=== PATIENT | male | born 2000 | race African-American/Black ===

== ENCOUNTER 2021-08-17 13:50 | Emergency (ER) | payer MEDICAID ==
[~2021-08-17] VITALS: Ht 177 cm; Wt 113.0 kg
--- NOTE | 2021-08-17 14:38 | ED Abdominal Pain ---
General Chief Complaint: Abdominal/GI Problems Stated Complaint: ABD PAIN Nursing Triage Note: PT CO OF ABD PAIN UPPER ABD SINCE THIS AM, PT WAS SEEN AT [facility] TODAY AND GIVEN IM OF SOMETHING Source of Information: Patient Exam Limitations: No Limitations History of Present Illness Date Seen by Provider: Aug 17, 2021 Time Seen by Provider: 14:38 Initial Comments ER with severe midline upper abdominal pain that radiates from the umbilicus up to the epigastric region. This began this morning he was seen at [facility] given a shot of Toradol with minimal improvement. He came here. No nausea no vomiting. No history of this. Timing/Duration: 4-6 Hours Severity/Quality: Severe Location: Epigastric Radiation: No Radiation Activities at Onset: None Associated Symptoms: No Nausea/Vomiting Allergies and Home Medications Allergies Coded Allergies: No Known Drug Allergies (Unverified , 08/17/21) Patient Home Medication List Home Medication List Reviewed: Yes Review of Systems Review of Systems Constitutional: see HPI EENTM: No Symptoms Reported Respiratory: No Symptoms Reported Cardiovascular: No Symptoms Reported Gastrointestinal: See HPI, Abdominal Pain Genitourinary: No Symptoms Reported Musculoskeletal: no symptoms reported Skin: no symptoms reported Psychiatric/Neurological: No Symptoms Reported Endocrine: No Symptoms Reported Hematologic/Lymphatic: No Symptoms Reported Past Momouoq-Cvoedn-Shhvhm Hx Patient Social History Tobacco Use?: No Substance use?: No Pt feels they are or have been: No Immunizations Up To Date First/Initial COVID19 Vaccinat: 2020 Second COVID19 Vaccination Ovidio: 2020 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 oz. kg; 36.00 BMI Method: General Appearance: WD/WN, no apparent distress HEENT: PERRL/EOMI, normal ENT inspection, TMs normal Neck: non-tender, full range of motion Respiratory: no respiratory distress, no accessory muscle use Cardiovascular: regular rate, rhythm, no murmur Gastrointestinal: normal bowel sounds, soft, tenderness Extremities: normal range of motion, non-tender, normal inspection Neurologic/Psychiatric: alert, normal mood/affect, oriented x 3 Skin: normal color, warm/dry Progress/Results/Core Measures Results/Orders My Orders Orders - SANYA WYATT APRN Cbc With Automated Diff (08/17/21 14:34) Comprehensive Metabolic Panel (08/17/21 14:34) Lipase (08/17/21 14:34) Antacid Suspension (Mylanta Suspension (08/17/21 14:45) Lidocaine 2% Viscous 15 Ml (Xylocaine Vi (08/17/21 14:45) Medications Given in ED Current Medications Medications Dose Ordered Sig/Agnieszka Route Start Time Stop Time Status Last Admin Dose Admin Al Hydrox/Mg Hydrox/Simethicone 30 ml ONCE ONCE PO 08/17/21 14:45 08/17/21 14:46 DC 08/17/21 15:16 30 ML Lidocaine HCl 15 ml ONCE ONCE PO 08/17/21 14:45 08/17/21 14:46 DC 08/17/21 15:16 15 ML Vital Signs/I&O 08/17/21 14:08 Temp 36.2 Pulse 95 Resp 18 B/P (MAP) 129/89 (102) Pulse Ox 98 Blood Pressure Mean: 102 Departure Communication (Admissions) 1550-GI cocktail completely resolved his pain. Impression Primary Impression: Gastritis Disposition: 01 HOME, SELF-CARE Condition: Stable Departure-Patient Inst. Decision time for Depature: 15:50 Referrals: [facility] (PCP/Family) Primary Care Physician Patient Instructions: Gastritis ED Add. Discharge Instructions: 1. You can use xinu-xbj-[id number] Mylanta as well to help if you have any recurrent pain. Take the acid instructional design specialist as directed. Follow-up with your doctor next week. Return to ER if any worsening. All discharge instructions reviewed with patient and/or family. Voiced understanding. Scripts Pantoprazole Sodium (Protonix) 40 Mg Tablet. 40 MG PO DAILY, #30 TAB Prov: SANYA WYATT APRN 08/17/21 SANYA WYATT APRN Aug 17, 2021 14:38
[2021-08-17] MEDS ORDERED: ANTACID SUSP 30 ML UDC (MYLANTA) PO ONE (14:45)
[2021-08-17] MEDS ORDERED: LIDOCAINE 2% VISCOUS 15 ML UDC PO ONE (14:45)
[2021-08-17] MEDS ORDERED: PANT40TA2 PO (15:51)
[2021-08-17 15:58] VITALS: BP 129/89
[2021-08-17 16:01] LABS: BASOPHILS % (AUTO) 0 % (0-10); EOSINOPHILS # (AUTO) 0.1 10^3/uL (0.0-0.3); EOSINOPHILS % (AUTO) 1 % (0-10); HEMATOCRIT 43 % (40-54); LYMPHOCYTES % (AUTO) 19 % (12-44); MEAN CORPUSCULAR HEMOGLOBIN 27 pg (25-34); MEAN CORPUSCULAR HGB CONC 32 g/dL (32-36); MEAN CORPUSCULAR VOLUME 84 fL (80-99); MEAN PLATELET VOLUME 8.2 fL (9.0-12.2); MONOCYTES # (AUTO) 0.4 10^3/uL (0.0-1.0); MONOCYTES % (AUTO) 8 % (0-12); NEUTROPHILS # (AUTO) 3.8 10^3/uL (1.8-7.8); NEUTROPHILS % (AUTO) 72 % (42-75); PLATELET COUNT 383 10^3/uL (130-400); WHITE BLOOD COUNT 5.3 10^3/uL (4.3-11.0)
[2021-08-17 16:05] LABS: ALBUMIN 4.3 GM/DL (3.2-4.5)
[2021-08-17 16:06] LABS: POTASSIUM 3.9 MMOL/L (3.6-5.0)
[2021-08-17 16:10] LABS: BILIRUBIN,TOTAL 0.7 MG/DL (0.1-1.0)
[2021-08-17 16:12] LABS: CREATININE SERUM 0.88 MG/DL (0.60-1.30)
== END 2021-08-17 15:58 | disposition home or self-care (01) ==
LOC: ER 13:53
DX: K29.70 Gastritis, unspecified, without bleeding (principal)
CPT/HCPCS: 36415; 80053; 83690; 85025; 99283

== ENCOUNTER 2022-05-08 00:15 | Emergency (ER) | payer MEDICAID ==
[~2022-05-08] VITALS: Ht 177 cm; Wt 115.0 kg
[~2022-05-08 00:15] MED LIST: PANT40TA2 PO
[2022-05-08] MEDS ORDERED: OMEP40CA6 (00:32)
[2022-05-08] MEDS ORDERED: LORA10TA7 (00:32)
[2022-05-08] MEDS ORDERED: QUET100T33 (00:32)
[2022-05-08] MEDS ORDERED: CLN.1T (00:32)
[2022-05-08] MEDS ORDERED: MONT-40 (00:32)
[2022-05-08] MEDS ORDERED: QUET300T19 (00:32)
[2022-05-08 00:41] LABS: BASOPHILS % (AUTO) 0 % (0-10); EOSINOPHILS # (AUTO) 0.1 10^3/uL (0.0-0.3); EOSINOPHILS % (AUTO) 1 % (0-10); HEMATOCRIT 41 % (40-54); HEMOGLOBIN 13.3 g/dL (13.3-17.7); LYMPHOCYTES % (AUTO) 17 % (12-44); MEAN CORPUSCULAR HEMOGLOBIN 26 pg (25-34); MEAN CORPUSCULAR HGB CONC 32 g/dL (32-36); MEAN CORPUSCULAR VOLUME 81 fL (80-99); MEAN PLATELET VOLUME 8.4 fL (9.0-12.2); MONOCYTES # (AUTO) 0.4 10^3/uL (0.0-1.0); MONOCYTES % (AUTO) 6 % (0-12); NEUTROPHILS # (AUTO) 4.2 10^3/uL (1.8-7.8); NEUTROPHILS % (AUTO) 75 % (42-75); PLATELET COUNT 407 10^3/uL (130-400); WHITE BLOOD COUNT 5.6 10^3/uL (4.3-11.0)
--- NOTE | 2022-05-08 00:43 | ED Abdominal Pain ---
General Chief Complaint: Abdominal/GI Problems Stated Complaint: ABD PAIN Nursing Triage Note: C/O GENERALIZED ABDOMINAL PAIN SINCE AFTER DINNER. PT REPORTS EATING SHAYLA SLAW FROM [facility] PRIOR TO SX ONSET. 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 PAIN IS WORSE WITH ANY MOVEMENTS OF HIS ABDOMEN NO RADIATION OF PAIN NO NAUSEA/VOMITING HAD A NORMAL BM TODAY NO URINARY SYMPTOMS NO FEVER BURGOS SNOT TAKEN ANYTHING FOR PAIN NO HISTORY OF SIMILAR HAS BEEN DX WITH "INFLAMMATION IN HIS STOMACH" AND TAKES OMEPRAZOLE. NO MISSED DOSES OF MEDICATION PCP: [facility] [place] Allergies and Home Medications Allergies Coded Allergies: No Known Drug Allergies (Unverified , 08/17/21) Patient Home Medication List Home Medication List Reviewed: Yes Clonidine HCl (Clonidine HCl) 0.1 Mg Tablet, (Reported) Entered as Reported by: SOL ADAN on 05/08/2231 Last Action: New Order Dicyclomine HCl (Dicyclomine HCl) 20 Mg Tablet, 20 MG PO Q6H Prescribed by: ZEUS MAGAÑA on 05/08/22 025 Loratadine (Loratadine) 10 Mg Tablet, (Reported) Entered as Reported by: SOL ADAN on 05/08/2231 Last Action: New Order Montelukast Sodium (Montelukast Sodium) 10 Mg Tablet, (Reported) Entered as Reported by: SOL ADAN on 05/08/2231 Last Action: New Order Omeprazole (Omeprazole) 40 Mg Capsule., (Reported) Entered as Reported by: SOL ADAN on 05/08/2231 Last Action: New Order Pantoprazole Sodium (Protonix) 40 Mg Tablet.dr, 40 MG PO DAILY Prescribed by: SANYA WYATT on 08/17/21 1556 Quetiapine Fumarate (Quetiapine Fumarate) 100 Mg Tablet, (Reported) Entered as Reported by: SOL ADAN on 05/08/2231 Last Action: New Order Quetiapine Fumarate (Quetiapine Fumarate) 300 Mg Tablet, (Reported) Entered as Reported by: SOL ADAN on 05/08/22 0032 Last Action: New Order Tramadol HCl (Tramadol HCl) 50 Mg Tablet, 50 MG PO Q6H PRN for PAIN Prescribed by: ZEUS MAGAÑA on 05/08/22 0300 Review of Systems Review of Systems Constitutional: no symptoms reported EENTM: No Symptoms Reported Respiratory: No Symptoms Reported Cardiovascular: No Symptoms Reported Gastrointestinal: See HPI, Abdominal Pain; Denies Constipated, Denies Diarrhea, Denies Nausea, Denies Vomiting Genitourinary: No Symptoms Reported Musculoskeletal: no symptoms reported Skin: no symptoms reported Psychiatric/Neurological: No Symptoms Reported Endocrine: No Symptoms Reported Hematologic/Lymphatic: No Symptoms Reported Past Ygymhbg-Fatmgu-Ujxzxy Hx Patient Social History Tobacco Use?: No Substance use?: No Alcohol Use?: No Pt feels they are or have been: No Immunizations Up To Date First/Initial COVID19 Vaccinat: x2 Second COVID19 Vaccination Ovidio: 2020 Past Medical History Surgery/Hospitalization HX: PSYCH, GERD Surgeries: No Respiratory: No Cardiac: No Neurological: No Genitourinary: No Gastrointestinal: Yes Gastroesophageal Reflux Musculoskeletal: No Endocrine: No HEENT: No Cancer: No Psychosocial: Yes Personality Disorder Integumentary: No Blood Disorders: No Physical Exam Vital Signs Vital Signs - First Documented 05/08/22 00:22 Temp 36.5 Pulse 101 Resp 18 B/P (MAP) 149/98 (115) Pulse Ox 97 O2 Delivery Room Air Capillary Refill : Less Than 3 Seconds Height/Weight/BMI Height: '" Weight: lbs. oz. kg; 36.00 BMI Method: General Appearance: WD/WN, no apparent distress, other (WALKS UPRIGHT AND MOVES QUICKLY WITHOUT DIFFICULTY) HEENT: No scleral icterus (R), No scleral icterus (L) Neck: normal inspection Respiratory: chest non-tender, normal breath sounds, no respiratory distress, no accessory muscle use Cardiovascular: regular rate, rhythm, no murmur Gastrointestinal: normal bowel sounds, soft, no organomegaly, no pulsatile mass; No distended, No guarding, No rebound; tenderness (DIFFUSE UPPER ABDOMINAL TENDERNESS. 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 nml as tested, no motor/sensory deficits, alert, normal mood/affect, oriented x 3 Skin: normal color (PT IS BLACK), warm/dry; No rash Progress/Results/Core Measures Results/Orders Lab Results Laboratory Tests Test 05/08/22 00:27 05/08/22 00:40 Range/Units White Blood Count 5.6 4.3-11.0 10^3/uL Red Blood Count 5.09 4.30-5.52 10^6/uL Hemoglobin 13.3 13.3-17.7 g/dL Hematocrit 41 40-54 % Mean Corpuscular Volume 81 80-99 fL Mean Corpuscular Hemoglobin 26 25-34 pg Mean Corpuscular Hemoglobin Concent 32 32-36 g/dL Red Cell Distribution Width 12.5 10.0-14.5 % Platelet Count 407 H 130-400 10^3/uL Mean Platelet Volume 8.4 L 9.0-12.2 fL Immature Granulocyte % (Auto) 1 % Neutrophils (%) (Auto) 75 42-75 % Lymphocytes (%) (Auto) 17 12-44 % Monocytes (%) (Auto) 6 0-12 % Eosinophils (%) (Auto) 1 0-10 % Basophils (%) (Auto) 0 0-10 % Neutrophils # (Auto) 4.2 1.8-7.8 10^3/uL Lymphocytes # (Auto) 1.0 1.0-4.0 10^3/uL Monocytes # (Auto) 0.4 0.0-1.0 10^3/uL Eosinophils # (Auto) 0.1 0.0-0.3 10^3/uL Basophils # (Auto) 0.0 0.0-0.1 10^3/uL Immature Granulocyte # (Auto) 0.0 0.0-0.1 10^3/uL Sodium Level 139 135-145 MMOL/L Potassium Level 3.6 3.6-5.0 MMOL/L Chloride Level 104 98-107 MMOL/L Carbon Dioxide Level 22 21-32 MMOL/L Anion Gap 13 5-14 MMOL/L Blood Urea Nitrogen 7 7-18 MG/DL Creatinine 0.96 0.60-1.30 MG/DL Estimat Glomerular Filtration Rate 114 BUN/Creatinine Ratio 7 Glucose Level 127 H 70-105 MG/DL Calcium Level 9.6 8.5-10.1 MG/DL Corrected Calcium 9.4 8.5-10.1 MG/DL Total Bilirubin 0.5 0.1-1.0 MG/DL Aspartate Amino Transf (AST/SGOT) 23 5-34 U/L Alanine Aminotransferase (ALT/SGPT) 40 0-55 U/L Alkaline Phosphatase 78 40-136 U/L C-Reactive Protein High Sensitivity 1.14 H 0.00-0.50 MG/DL Total Protein 8.2 6.4-8.2 GM/DL Albumin 4.3 3.2-4.5 GM/DL Amylase Level 43 25-125 U/L Lipase 19 8-78 U/L Serum Alcohol < 10 <10 MG/DL Urine Color DARK YELLOW Urine Clarity CLEAR Urine pH 6.0 5-9 Urine Specific Earling >=1.030 1.016-1.022 Urine Protein NEGATIVE NEGATIVE Urine Glucose (UA) NEGATIVE NEGATIVE Urine Ketones NEGATIVE NEGATIVE Urine Nitrite NEGATIVE NEGATIVE Urine Bilirubin NEGATIVE NEGATIVE Urine Urobilinogen 1.0 < = 1.0 MG/DL Urine Leukocyte Esterase NEGATIVE NEGATIVE Urine RBC (Auto) NEGATIVE NEGATIVE Urine RBC NONE /HPF Urine WBC NONE /HPF Urine Crystals NONE /LPF Urine Bacteria NEGATIVE /HPF Urine Casts NONE /LPF Urine Mucus SMALL H /LPF Urine Culture Indicated NO Urine Opiates Screen NEGATIVE NEGATIVE Urine Oxycodone Screen NEGATIVE NEGATIVE Urine Methadone Screen NEGATIVE NEGATIVE Urine Propoxyphene Screen NEGATIVE NEGATIVE Urine Barbiturates Screen NEGATIVE NEGATIVE Ur Tricyclic Antidepressants Screen POSITIVE H NEGATIVE Urine Phencyclidine Screen NEGATIVE NEGATIVE Urine Amphetamines Screen NEGATIVE NEGATIVE Urine Methamphetamines Screen NEGATIVE NEGATIVE Urine Benzodiazepines Screen NEGATIVE NEGATIVE Urine Cocaine Screen NEGATIVE NEGATIVE Urine Cannabinoids Screen NEGATIVE NEGATIVE My Orders Orders - ZEUS MAGAÑA DO Ed Iv/Invasive Line Start (05/08/22 00:31) Alcohol (05/08/22 00:31) Amylase (05/08/22:31) Cbc With Automated Diff (05/08/22:) Comprehensive Metabolic Panel (05/08/22:) Hs C Reactive Protein (05/08/22:31) Drug Screen Stat (Urine) (05/08/22:31) Lipase (05/08/22 00:31) Ua Culture If Indicated (05/08/22:31) Ct Abd/Pelv W (Appendicitis) (12/9/22 00:31) Iohexol Injection (Omnipaque 350 Mg/Ml 1 (05/08/22 01:30) Received Contrast (Hold Metformin- Contr (05/08/22 01:30) Ns (Ivpb) (Sodium Chloride 0.9% Ivpb Bag (05/08/22 01:30) Medications Given in ED Current Medications Medications Dose Ordered Sig/Agnieszka Route Start Time Stop Time Status Last Admin Dose Admin Iohexol 100 ml ONCE ONCE IV 05/08/22 01:30 05/08/22 01:31 DC 05/08/22 01:28 100 ML Sodium Chloride 100 ml ONCE ONCE IV 05/08/22 01:30 05/08/22 01:31 DC 05/08/22 01:28 80 ML Vital Signs/I&O 05/08/22 00:22 Temp 36.5 Pulse 101 Resp 18 B/P (MAP) 149/98 (115) Pulse Ox 97 O2 Delivery Room Air Blood Pressure Mean: 115 Progress Progress Note : Progress Note SYMPTOMS RESOLVED WITHOUT TREATMENT PT SLEPT FOR MOST OF ER STAY REVIEWED TEST RESULTS, DIET MODIFICATIONS, NEED FOR FOLLOW UP WITH SURGEON FOR FURTHER EVAULATION AND RETURN PRECAUTIONS DISCUSSED WITH BOTH PT AND 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 Reviewed: Reviewed by Me Departure Impression Primary Impression: Abdominal pain Additional Impression: Cholelithiases Disposition: HOME, SELF-CARE Condition: Improved Departure-Patient Inst. Decision time for Depature: 02:50 Referrals: [facility] (PCP/Family) Primary Care Physician RADHA WATSON MD Patient Instructions: Gallstones ED, Gallbladder Diet Add. Discharge Instructions: CLEAR LIQUIDS--WATER, BROTH, JELLO, GATORADE BRATS DIET--BANANAS, RICE, APPLESAUCE, TOAST, SALTINES FOLLOW UP WITH DR. WATSON, SURGEON, FOR FURTHER CARE--CALL THIS MORNING TO SCHEDULE A FOLLOW UP APPOINTMENT RETURN TO ER IF SYMPTOMS WORSEN All discharge instructions reviewed with patient and/or family. Voiced understanding. Scripts Tramadol HCl (Tramadol HCl) 50 Mg Tablet 50 MG PO Q6H PRN for PAIN for 3 Days, #15 TAB 0 Refills Prov: ZEUS MAGAÑA DO 05/08/22 Dicyclomine HCl (Dicyclomine HCl) 20 Mg Tablet 20 MG PO Q6H for Abdominal Pain, #20 TAB Prov: ZEUS MAGAÑA DO 05/08/22 ZEUS MAGAÑA DO May 08, 2022 00:43
[2022-05-08 00:44] LABS: BILIRUBIN,URINE NEGATIVE (NEGATIVE); CLARITY,URINE CLEAR; COLOR,URINE DARK YELLOW; GLUCOSE, URINE (UA) NEGATIVE (NEGATIVE); KETONES,URINE NEGATIVE (NEGATIVE); LEUKOCYTE ESTERASE ,URINE NEGATIVE (NEGATIVE); NITRITE,URINE NEGATIVE (NEGATIVE); PROTEIN,URINE NEGATIVE (NEGATIVE)
[2022-05-08 00:55] LABS: ALANINE AMINOTRANSFERASE 40 U/L (0-55); ALBUMIN 4.3 GM/DL (3.2-4.5); ALKALINE PHOSPHATASE 78 U/L (40-136); AMYLASE 43 U/L (25-125); BILIRUBIN,TOTAL 0.5 MG/DL (0.1-1.0); BUN/CREATININE RATIO 7; CALCIUM 9.6 MG/DL (8.5-10.1); CARBON DIOXIDE 22 MMOL/L (21-32); CHLORIDE 104 MMOL/L (98-107); CREATININE SERUM 0.96 MG/DL (0.60-1.30); GFR ESTIMATED 114; GLUCOSE 127 MG/DL (70-105); LIPASE 19 U/L (8-78); POTASSIUM 3.6 MMOL/L (3.6-5.0); SODIUM 139 MMOL/L (135-145); TOTAL PROTEIN 8.2 GM/DL (6.4-8.2)
[2022-05-08 01:06] LABS: BACTERIA,URINE NEGATIVE /HPF
[2022-05-08 01:20] LABS: AMPHETAMINE SCREEN, URINE NEGATIVE (NEGATIVE); BARBITURATE SCREEN URINE NEGATIVE (NEGATIVE); BENZODIAZEPINES SCREEN URINE NEGATIVE (NEGATIVE); CANNABINOID SCREEN, URINE NEGATIVE (NEGATIVE); COCAINE SCREEN URINE NEGATIVE (NEGATIVE); METHADONE STAT NEGATIVE (NEGATIVE); OPIATE SCREEN URINE NEGATIVE (NEGATIVE); OXYCODONE STAT NEGATIVE (NEGATIVE); PROPOXYPHENE STAT NEGATIVE (NEGATIVE); TRICYCLIC ANTIDEPRESSANTS SCRE POSITIVE (NEGATIVE)
[2022-05-08] MEDS ORDERED: NS 100 ML (IVPB) BAG IV ONE (01:30)
[2022-05-08] MEDS ORDERED: HOLD METFORMIN - RECEIVED CONTRAST 20 ML VIAL IV SCH (01:30)
[2022-05-08] MEDS ORDERED: IOHEXOL 350 MG/ML 100 ML (OMNIPAQUE 350) VIAL IV ONE (01:30)
[2022-05-08] MEDS ORDERED: TRM50T PO (02:59)
[2022-05-08] MEDS ORDERED: DICY20TA PO (02:59)
[2022-05-08 03:03] VITALS: BP 146/95
--- NOTE | 2022-05-08 06:53 | Diagnostic Imaging Report ---
INDICATION: Right lower quadrant abdominal pain TECHNIQUE: Multiple contiguous axial images were obtained through the abdomen and pelvis after the administration of intravenous contrast. All CT scans use one or more of the following dose optimizing techniques: automated exposure control, MA and/or KvP adjustment based on patient size and exam type or iterative reconstruction. There is no prior CT for comparison The visualized portions of the lung bases are clear. There were no pleural fluid collections. There is no free intraperitoneal air. Small hiatal hernia is noted. The liver and gallbladder appear normal. Spleen, adrenals, and pancreas are normal. The kidneys bilaterally appear normal. There is no retroperitoneal mass or adenopathy. There is no ascites or abnormal fluid collection. The appendix appears normal. Visualized bowel loops show no obstruction or bowel wall thickening. There is no pelvic mass or free fluid. IMPRESSION: No acute process in the abdomen or pelvis. Small hiatal hernia incidentally noted. No CT evidence of appendicitis. Dictated by: Dictated on workstation # [id number]
== END 2022-05-08 03:07 | disposition home or self-care (01) ==
LOC: EDUNIT# 00:15 → ER 00:19
DX: K80.20 Calculus of gallbladder without cholecystitis without obstruction (principal)
CPT/HCPCS: 74177; 80053; 80306; 81000; 82150; 83690; 85025; 86141; 99283; G0480; 36415; 80320

== ENCOUNTER 2022-08-05 05:28 | Outpatient (CLI) | payer MEDICAID ==
[~2022-08-05] VITALS: Ht 180.3 cm; Wt 120.2 kg
[~2022-08-05 05:28] MED LIST changes: +CLN.1T; +DICY20TA PO; +LORA10TA7; +MONT-40; +OMEP40CA6; +QUET100T33; +QUET300T19; +TRM50T PO
[2022-08-05] MEDS ORDERED: RT-ALBUINH INH (14:44)
[2022-08-05] MEDS ORDERED: FLUT9.9S NS (14:44)
[2022-08-05] MEDS ORDERED: FAMO20TA3 PO (14:44)
== END 2022-08-05 15:00 | disposition home or self-care (01) ==
LOC: PREOP 05:28
PROVIDERS: ATTEND Surgery
DX: Z01.818 Encounter for other preprocedural examination (principal)

== ENCOUNTER 2022-08-12 07:34 | Day surgery (SDC) | payer MEDICAID ==
[~2022-08-12] VITALS: Ht 180.3 cm; Wt 120.2 kg
[2022-08-12] VITALS (12 sets, daily range): BP systolic 98–156; BP diastolic 47–105
[~2022-08-12 07:34] MED LIST changes: +FAMO20TA3 PO; +FLUT9.9S NS; +HYDROmorphone 2 MG/ML VIAL (DILAUDID) IV ONE; +ONDANSETRON 4 MG/2 ML (SDV) Z0FRAN IVP PRN; +RT-ALBUINH INH; +morphine INJ 10 MG/ML 1ML (SYR OR VIAL) IVP ONE
[2022-08-12] MEDS ORDERED: ceFAZolin INJECTION 2,000 MG in NS (IVPB) 50 ML IV ONE (08:00)
[2022-08-12] MEDS ORDERED: proPOfol 200 MG/20 ML (DIPRIVAN) VIAL IV ONE (08:03)
[2022-08-12] MEDS ORDERED: MIDAZOLAM 2 MG/2 ML (VERSED) VIAL ONE (08:03)
[2022-08-12] MEDS ORDERED: LIDOCAINE PF 2% 5 ML (XYLOCAINE) VIAL ONE (08:03)
[2022-08-12] MEDS ORDERED: fentaNYL INJ 100 MCG/2 ML AMP ONE (08:03)
[2022-08-12] MEDS ORDERED: GLYCOPYRROLATE 0.2 MG/ML (ROBINUL) 2 ML VIAL ONE (08:03)
[2022-08-12] MEDS ORDERED: ONDANSETRON 4 MG/2 ML (SDV) Z0FRAN ONE ×2 (08:03→12:59)
[2022-08-12] MEDS ORDERED: NEOSTIGMINE (BLOXIVERZ ) 1 MG/1ML 10 ML VIAL ONE (08:04)
[2022-08-12] MEDS ORDERED: ROCURONIUM 50 MG/5 ML (ZEMURON) VIAL IV ONE ×2 (08:04→10:28)
[2022-08-12] MEDS ORDERED: BUP/EPI 0.5% 1:200,000 (SENSORCAINE) 30 ML VIAL ONE (08:37)
[2022-08-12] MEDS: LACTATED RINGERS 1,000 ML IV PRN ×3 (08:48→13:27)
[2022-08-12] MEDS ORDERED: IOHEXOL 300 MG/ML 100 ML (OMNIPAQUE 300) VIAL INJ ONE (08:56)
[2022-08-12] MEDS ORDERED: BUP/EPI 0.5% 1:200,000 (SENSORCAINE) 30 ML VIAL INJ ONE (08:56)
--- NOTE | 2022-08-12 09:03 | Progress Note-Pre Operative ---
Pre-Operative Progress Note Date of Available H&P: Jul 21, 2022 Date H&P Reviewed: Aug 12, 2022 Time H&P Reviewed: 09:01 History & Physical: H&P Reviewed, Patient Examed, No changes noted Pre-Operative Diagnosis: Cholelithiasis/Cholecystitis WASHINGTON SPEARS DO Aug 12, 2022 09:03
[2022-08-12] MEDS ORDERED: HYDROmorphone 2 MG/ML VIAL (DILAUDID) ONE (09:33)
[2022-08-12] MEDS ORDERED: SEVOFLURANE (ULTANE) 15 ML INHAL SOLN ONE (11:08)
[2022-08-12] MEDS ORDERED: SUGAMMADEX 500 MG/5 ML VIAL (BRIDION) IV ONE (11:32)
--- NOTE | 2022-08-12 11:38 | Progress Note-Post Operative ---
Post-Operative Progess Note Surgeon (s)/Quarry Plant Crusher Operator (s) Surgeon WASHINGTON SPEARS DO Quarry Plant Crusher Operator: SACHI Blakely Pre-Operative Diagnosis Cholelithiasis/Cholecystitis Post-Operative Diagnosis same plus incarcerated umbilical hernia Procedure & Operative Findings Date of Procedure 08/12/22 Procedure Performed/Findings PROCEDURE: Laparoscopic cholecystectomy with intraoperative cholangiogram. COMPLICATIONS: None. PROCEDURE: The patient was taken to the operating suite and was prepped and draped in sterile fashion. A surgical pause was performed. Just superior to the umbilicus, a 12 mm incision was made. Dissection was taken down to the fascia, which was then scored and grasped with a Jordan and the abdomen was then entered. An 0 Vicryl suture was placed in a [id number]-fi-roeod fashion and a Justin trocar was placed and secured. Pneumoperitoneum was achieved. A 5mm trochar place in the subxyphoid and 2 in the right upper quadrant. The gallbladder was noted to have multiple adhesions and the wall was thickened; this indicates previous attacks. Then grasped at the fundus and taken in the superior direction, continued to take down the adhesions with bovie cautery. The gallbladder was very thickened and pt had a large liver, it was very hard to grasp gallbladder and visualization was limited. Attempting to grasp at Gómez's pouch and pull in the infero-lateral direction was nearly impossible. The gallbladder was very intrahepatic. I attempted to dissect out the cystic duct and cystic artery; using [place] grasper, Kitners and hydrodissection. Unfortunately, I was not able to dissect them out and visualize them. At this point I then elected to start dissecting from the top down to duct. Using L-hook cautery staying in the plane between gallbladder and the liver, carefully began removing gallbladder from the bed of liver. As I was coming down on the back side, I made a small hole in the gallbladder. However, through this I was able to see the cystic duct from the inside. An arrow catheter was inserted into the duct and the cholangiogram was then performed. The dye appeared to go down common bile duct and into the duodenum, with no filling defects. The contrast did not go up into liver and did spill out; therefore, not the best cholangiogram. I attempted multiple other times but I could not get the catheter further into duct and it kept folding and then popping out when the balloon was inflated. Catheter was removed and at this point elected to place a PDS Endoloop around the gallbladder just distal to the hole in the gallbladder. I do not believe this was anywhere near the common duct. I did not see the cystic artery. I cut the endoloop and then removed the gallbladder above the endoloop, most likely leaving a small portion of gallbladder with cystic duct. The gallbladder and two stones were then placed in an Endobag and removed through the 12 mm trocar site. As I did this could see an incarcerated umbilical hernia; picture taken. The abdomen was then reinspected. Copious amounts of irrigation were used to irrigate the abdomen and there were no signs of active bleeding. Hemostasis had been achieved. The 12 mm fascial defect was then closed with 0 Vicryl suture that had been placed in a [id number]-iv-vpecf fashion. The abdomen was then desufflated, the trocars were removed. The abdomen was then washed and dried. The skin was then closed using 4-0 Monocryl in a subcuticular fashion. The abdomen was washed and dried and Skin Affix was place over incisions. Patient tolerated the procedure well without any complications and was taken to the recovery room in stable condition. Anesthesia Type GET Estimated Blood Loss Estimated blood loss (mL): less than 10ml Specimens/Packing Specimens Removed GB and contents WASHINGTON SPEARS DO Aug 12, 2022 11:38
[2022-08-12] MEDS ORDERED: ACHYD1T PO (11:39)
--- NOTE | 2022-08-12 11:41 | Discharge Inst-Surgical ---
Discharge Inst-Surgical Depart Medication/Instructions New, Converted or Re-Newed RX: Transmitted to Pharmacy Patient Instructions Follow up Appt: Make appointment for 1 week. [phone] Instructions: No lifting greater than 20 pounds. No strenuous activity. May shower in 24 hours, no tub bath or soaking. Use incentive spirometer at home as directed. No Smoking Skin/Wound Care: May remove bandages in am. You need to leave the Dermabond on incision it will fall off on it's own. Symptoms to Report: Appetite Changes, Extremity Discoloration, Numbness/Tingling, Swelling Increased, Bleeding Excessive, Eyesight Changes, Pain Increased, Urine Color Change, Constipation(Persistent), Fever over 101 degree F, Pain/Pressure in chest, Urinating Difficulty, Cough Up/Vomit Blood, Heart Beat Irreg/Pounding, Pain/Pressure in jaw, Cramps in feet or legs, Lightheadedness, Pain/Pressure in shoulder, Diarrhea(Persistent), Memory Changes Suddenly, Questions/Concerns, Weight gain consecutive days, Dizziness/Fainting, Nausea/Vomiting, Shortness of Breath, Weight gain over 2 pounds If questions or concerns contact your physician Or seek help at emergency department. Activity Activity as Tolerated: Yes Activity Instructions: Avoid Stress to Incision Driving Instructions: No Driving/Refer to Diet Discharge Diet: Avoid Fatty Foods, Low Fat/Low Cholesterol Diet After 24 Hours: Clear Liquid if Nauseous If Any Problems/Questions/Issu: Contact Your Physician, Go to Emergency Room Skin/Wound Care Infection Signs and Symptoms: Increased Redness, Foul Odor of Wound, Increased Drainage, Skin Itchy or Has a Rash, Increased Swelling, Temperature Above 101 F Wound Care Comment: heating pad to shoulder or neck tonight for pain Bathing Instructions: Shower Stitches/[place]/Dermabond Dis: Dermabond Ice Pack: Ice On and Off Site WASHINGTON SPEARS DO Aug 12, 2022 11:41
--- NOTE | 2022-08-12 12:20 | Anesthesia-General Post-Op ---
General Patient Condition Mental Status/LOC: Same as Preop Cardiovascular: Satisfactory Nausea/Vomiting: Absent Respiratory: Satisfactory Pain: Controlled Complications: Absent Post Op Complications Complications None Follow Up Care/Instructions Patient Instructions None needed. Anesthesia/Patient Condition Patient Condition Patient was just seen in PACU and doing well, no complaints, stable vital signs, no apparent adverse anesthesia problems. No complications reported per nursing. TRISTAN WAGNER DO Aug 12, 2022 12:20
[2022-08-12] MEDS ORDERED: ONDANSETRON 4 MG/2 ML (SDV) Z0FRAN IVP ONE (12:55)
[2022-08-12] MEDS ORDERED: HYDROcodone/APAP 5 MG/325 MG (LORTAB) TAB PO ONE (14:15)
--- NOTE | 2022-08-12 15:02 | Diagnostic Imaging Report ---
INDICATION: Fluoroscopy during intraoperative cholangiogram. FINDINGS: Fluoroscopy was provided in the OR during intraoperative cholangiogram. 28 seconds of fluoroscopic time was utilized. 163 images were obtained. Images demonstrate contrast being injected via the cystic duct remnant. There was poor opacification of the biliary system. Extravasated contrast is noted. IMPRESSION: Fluoroscopy during attempted intraoperative cholangiogram. Dictated by: Dictated on workstation # [id number]
== END 2022-08-12 14:58 | disposition home or self-care (01) ==
LOC: SDC 07:34
PROVIDERS: ATTEND Surgery
DX: K80.10 Calculus of gallbladder with chronic cholecystitis without obstruction (principal); K66.0 Peritoneal adhesions (postprocedural) (postinfection); K21.9 Gastro-esophageal reflux disease without esophagitis; E66.9 Obesity, unspecified; Z68.37 Body mass index [BMI] 37.0-37.9, adult
CPT/HCPCS: 76000; 87081; 88304

== ENCOUNTER 2023-03-10 05:31 | Outpatient (CLI) | payer MEDICAID ==
[~2023-03-10] VITALS: Ht 180.3 cm; Wt 132.9 kg
[~2023-03-10 05:31] MED LIST changes: +ACHYD1T PO; -CLN.1T; +CLN.1T PO; +FAMO-356 PO; -FAMO20TA3 PO; -HYDROmorphone 2 MG/ML VIAL (DILAUDID) IV ONE; -LORA10TA7; +LORA10TA7 PO; -MONT-40; +MONT-40 PO; -OMEP40CA6; +OMEP40CA6 PO; -ONDANSETRON 4 MG/2 ML (SDV) Z0FRAN IVP PRN; -QUET100T33; +QUET100T33 PO; -QUET300T19; +QUET300T19 PO; -morphine INJ 10 MG/ML 1ML (SYR OR VIAL) IVP ONE
[2023-03-12] MEDS ORDERED: CLN.1T PO (15:22)
== END 2023-03-12 15:23 | disposition home or self-care (01) ==
LOC: PREOP 05:31
PROVIDERS: ATTEND Surgery
DX: Z01.818 Encounter for other preprocedural examination (principal)

== ENCOUNTER 2023-03-17 07:32 | Day surgery (SDC) | payer MEDICAID ==
[2023-03-17] VITALS (13 sets, daily range): BP systolic 121–177; BP diastolic 73–122
[~2023-03-17] VITALS: Ht 180.3 cm; Wt 132.9 kg
--- NOTE | 2023-03-17 08:44 | Progress Note-Pre Operative ---
Pre-Operative Progress Note Date H&P Reviewed: Mar 17, 2023 Time H&P Reviewed: 08:41 History & Physical: H&P Reviewed, Patient Examed, No changes noted Pre-Operative Diagnosis: Ventral/Incisional hernia WASHINGTON SPEARS DO Mar 17, 2023 08:44
[2023-03-17] MEDS ORDERED: ceFAZolin INJECTION 3,000 MG in NS (IVPB) 100 ML 100 ML IV ONE (09:00)
[2023-03-17] MEDS: LACTATED RINGERS 1,000 ML 1,000 ML IV PRN ×2 (09:08→11:43)
[2023-03-17] MEDS ORDERED: LIDOCAINE 2% w/EPI 1:100,000 20 ML VIAL ONE (10:36)
[2023-03-17] MEDS ORDERED: GLYCOPYRROLATE INJ 0.2 MG/ML 2 ML VIAL ONE (10:43)
[2023-03-17] MEDS ORDERED: fentaNYL INJECTION 100 MCG/2 ML VIAL ONE (10:43)
[2023-03-17] MEDS ORDERED: MIDAZOLAM INJ 2 MG/2 ML VIAL ONE (10:43)
[2023-03-17] MEDS ORDERED: proPOfol INJECTION 200 MG/20 ML VIAL IV ONE (10:43)
[2023-03-17] MEDS ORDERED: ONDANSETRON INJECTION 4 MG/2 ML (SDV) ONE (10:43)
[2023-03-17] MEDS ORDERED: dexAMETHasone INJ 10 MG/ML 1 ML VIAL ONE (10:43)
[2023-03-17] MEDS ORDERED: LIDOCAINE PF 2% 5 ML VIAL ONE (10:43)
[2023-03-17] MEDS ORDERED: ROCURONIUM 50 MG/5 ML VIAL IV ONE (10:44)
[2023-03-17] MEDS ORDERED: NEOSTIGMINE 1 MG/1ML 10 ML VIAL ONE (10:44)
[2023-03-17] MEDS ORDERED: LIDOCAINE 2% w/EPI 1:100,000 20 ML VIAL INJ ONE (11:27)
[2023-03-17] MEDS ORDERED: HYDROmorphone INJECTION 2 MG/ML VIAL ONE (12:08)
[2023-03-17] MEDS ORDERED: SEVOFLURANE (ULTANE) 15 ML INHAL SOLN ONE (12:12)
--- NOTE | 2023-03-17 12:25 | Progress Note-Post Operative ---
Post-Operative Progess Note Surgeon (s)/Manager Lab (s) Surgeon WASHINGTON SPEARS DO Manager Lab: [facility] Pre-Operative Diagnosis Ventral/Incisional hernia Post-Operative Diagnosis Same Incarcerated and umbilical hernia Procedure & Operative Findings Date of Procedure 03/17/23 Procedure Performed/Findings PROCEDURE: Laparoscopic Ventral/Incisional hernia repair with mesh; appx 5cm defect. Robotic COMPLICATIONS: None. INDICATIONS: The patient is a 22, male with an incarcerated ventral/incisional hernia and an umbilical hernia, which has continued to increase in size and cause discomfort. The patient was explained the risk and benefits of the procedure and wished to proceed with the procedure. Consent was signed on the chart. DESCRIPTION OF PROCEDURE: The patient was taken into the operating suite, prepped and draped in sterile fashion. Surgical pause was performed. Local anesthetic was infiltrated in left upper quadrant. A #11 blade scalpel was used to make a small skin incision. Cautery was used to dissect down to the fascia, which was then scored and divided the muscle, went through the posterior sheath and a balloon trocar was inserted into the abdomen. The abdomen was then insufflated. Incarcerated fat was found in the incisional hernia and stuck to the umbilical hernia. There were two defects and the bridge which measured approximately 5cm. Two 8mm robotic trocars were placed; one directly across from the hernia and a second in the left lower quadrant. When tacking we placed a 5 mm trocar was placed in the right at the middle of abdomen quadrant. The defect was then closed using 0 Strattafix running suture; used an 18inch and a 9 inch. Echo Ventralight mesh was then inserted in the abdomen grabbed through a stab incision. Used a 4x6 inch mesh, the balloon was inflated on the mesh and circumferential tacks were placed with a SecureStrap Tacker. The balloon was then removed and inner crown was created as well. The mesh was tacked with pressure being decreased. The 12 mm fascial defect was then closed using 0 Vicryl. The abdomen was then desufflated,the trocars were removed. The skin was then closed using 4-0 Monocryl in a running subcuticular fashion. The abdomen was washed and dried and Skin Affix was placed over the incisions. The patient tolerated procedure well without any complications. He was taken to recovery room in stable condition. Dr. Ring helped to make incisions, close incisions, pass the mesh, tack the mesh in place and pass and remove suture. Anesthesia Type GET Estimated Blood Loss Estimated blood loss (mL): scant Specimens/Packing Specimens Removed none WASHINGTON SPEARS DO Mar 17, 2023 12:25
[2023-03-17] MEDS ORDERED: ACHYD1T PO (12:26)
--- NOTE | 2023-03-17 12:27 | Discharge Inst-Surgical ---
Discharge Inst-Surgical Depart Medication/Instructions New, Converted or Re-Newed RX: Transmitted to Pharmacy Patient Instructions Follow up Appt: Make appointment for 1 week. [phone] Instructions: No lifting greater than 20 pounds. No strenuous activity. May shower in 24 hours, no tub bath or soaking. Use incentive spirometer at home as directed. No Smoking Skin/Wound Care: May remove bandages in am. You need to leave the Dermabond on incision it will fall off on it's own. Symptoms to Report: Appetite Changes, Extremity Discoloration, Numbness/Tingling, Swelling Increased, Bleeding Excessive, Eyesight Changes, Pain Increased, Urine Color Change, Constipation(Persistent), Fever over 101 degree F, Pain/Pressure in chest, Urinating Difficulty, Cough Up/Vomit Blood, Heart Beat Irreg/Pounding, Pain/Pressure in jaw, Cramps in feet or legs, Lightheadedness, Pain/Pressure in shoulder, Diarrhea(Persistent), Memory Changes Suddenly, Questions/Concerns, Weight gain consecutive days, Dizziness/Fainting, Nausea/Vomiting, Shortness of Breath, Weight gain over 2 pounds If questions or concerns contact your physician Or seek help at emergency department. Activity Activity as Tolerated: Yes Activity Instructions: Avoid Stress to Incision Driving Instructions: No Driving/Refer to Dr. Nunes Discharge Diet: No Restrictions Diet After 24 Hours: Clear Liquid if Nauseous If Any Problems/Questions/Issu: Contact Your Physician, Go to Emergency Room Skin/Wound Care Infection Signs and Symptoms: Increased Redness, Foul Odor of Wound, Increased Drainage, Skin Itchy or Has a Rash, Increased Swelling, Temperature Above 101 F Wound Care Comment: heating pad to shoulder or neck tonight for pain Bathing Instructions: Shower Stitches/[place]/Dermabond Dis: [place] WASHINGTON SPEARS DO Mar 17, 2023 12:27
[2023-03-17] MEDS ORDERED: ONDANSETRON INJECTION 4 MG/2 ML (SDV) IVP PRN (12:45)
[2023-03-17] MEDS ORDERED: HYDROmorphone INJECTION 2 MG/ML VIAL IV ONE (12:45)
[2023-03-17] MEDS ORDERED: morphine INJ 10 MG/ML 1ML (SYR OR VIAL) IVP ONE (12:45)
[2023-03-17] MEDS ORDERED: LABETALOL 5 mg/ml 4 ML SINGLE DOSE SYRINGE ONE (13:20)
[2023-03-17] MEDS ORDERED: HYDROcodone/ACETAMINOPHEN 10/325 TABLET PO ONE ×2 (14:00→14:15)
--- NOTE | 2023-03-18 11:48 | Anesthesia-General Post-Op ---
General Patient Condition Mental Status/LOC: Same as Preop Cardiovascular: Satisfactory Nausea/Vomiting: Absent Respiratory: Satisfactory Pain: Controlled Complications: Absent Post Op Complications Complications None Follow Up Care/Instructions Patient Instructions None needed. Anesthesia/Patient Condition Patient Condition Patient was doing well yesterday after the procedure. His pain was controlled in PACU but he was still hypertensive so labetalol was given IV. No other complaints, stable vital signs, no apparent adverse anesthesia problems. No complications reported per nursing. TRISTAN WAGNER DO Mar 18, 2023 11:48
== END 2023-03-17 14:50 | disposition home or self-care (01) ==
LOC: SDC 07:32
PROVIDERS: ATTEND Surgery
DX: K43.0 Incisional hernia with obstruction, without gangrene (principal); K42.0 Umbilical hernia with obstruction, without gangrene; E66.01 Morbid (severe) obesity due to excess calories; Z68.41 Body mass index [BMI] 40.0-44.9, adult
CPT/HCPCS: 49594; 87081; 94664; C1781